=== PATIENT | female | born 1975 | race Caucasian/White ===

== ENCOUNTER 2019-03-29 22:41 | Emergency (ER) | payer MEDICAID ==
[~2019-03-29] VITALS: Ht 165.1 cm; Wt 72.0 kg
[2019-03-29 23:09] VITALS: BP 144/89
== END 2019-03-30 03:00 | disposition left against medical advice (07) ==
LOC: ER 22:41
DX: R50.9 Fever, unspecified (principal); Z53.21 Procedure and treatment not carried out due to patient leaving prior to being seen by health care provider